=== PATIENT | female | born 1990 | race American Indian/Alaskan Native ===

== ENCOUNTER 2017-05-05 12:02 | Outpatient (CLI) | payer OTHER | END 2017-05-05 12:54 | disposition home or self-care (01) | LOC: NST 12:02 | DX: Z34.83 Encounter for supervision of other normal pregnancy, third trimester (principal) ==

== ENCOUNTER 2017-05-20 12:19 | Outpatient (CLI) | payer OTHER | END 2017-05-20 12:32 | disposition home or self-care (01) | LOC: LAB 12:19 | DX: Z34.93 Encounter for supervision of normal pregnancy, unspecified, third trimester (principal) ==

== ENCOUNTER 2017-06-03 15:00 | Inpatient (IN) | payer OTHER ==
[~2017-06-03] VITALS: Ht 160 cm; Wt 71.2 kg
[2017-06-22] MEDS ORDERED: PRENATAL TABLE1 EAC4 PO (09:55)
== END 2017-06-24 10:01 | disposition home or self-care (01) | DRG 775 ==
LOC: LDR 06-21 15:00 → SURG-SUITE 06-22 19:58
PROC: 10E0XZZ Delivery of Products of Conception, External Approach (ICD-10-PCS; principal; 2017-06-22)
PROC: 3E033VJ Introduction of Other Hormone into Peripheral Vein, Percutaneous Approach (ICD-10-PCS; 2017-06-22)
PROC: 4A1HXCZ Monitoring of Products of Conception, Cardiac Rate, External Approach (ICD-10-PCS; 2017-06-22)
DX: O48.0 Post-term pregnancy (principal); Z3A.40 40 weeks gestation of pregnancy; Z37.0 Single live birth

== ENCOUNTER 2017-06-17 15:08 | Outpatient (CLI) | payer OTHER | END 2017-06-17 17:26 | disposition home or self-care (01) | LOC: NST 15:08 | DX: Z34.03 Encounter for supervision of normal first pregnancy, third trimester (principal) ==

== ENCOUNTER 2017-06-21 12:58 | Outpatient (CLI) | payer OTHER ==
[2017-06-22] MEDS ORDERED: PRENATAL TABLE1 EAC4 PO (09:55)
== END 2017-06-21 13:55 | disposition home or self-care (01) ==
LOC: NST 12:58
DX: O48.0 Post-term pregnancy (principal); Z34.03 Encounter for supervision of normal first pregnancy, third trimester

== ENCOUNTER → 2020-03-27 | Outpatient (CLI) | payer OTHER ==
[~2020-03-27] MED LIST: PRENATAL TABLE1 EAC4 PO
== END | disposition home or self-care (01) ==
LOC: PRENATAL 15:00
PROVIDERS: ATTEND Obstetrics & Gynecology Maternal & Fetal Medicine
DX: O35.0XX1 Maternal care for (suspected) central nervous system malformation in fetus, fetus 1 (principal); O35.3XX1 Maternal care for (suspected) damage to fetus from viral disease in mother, fetus 1; O98.512 Other viral diseases complicating pregnancy, second trimester; O99.891 Other specified diseases and conditions complicating pregnancy; Z36.89 Encounter for other specified antenatal screening; Z3A.20 20 weeks gestation of pregnancy